=== PATIENT | male | born 2005 | race Caucasian/White ===

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

== ENCOUNTER 2024-03-04 08:21 | Emergency (ER) | payer BC ==
[~2024-03-04] VITALS: Ht 185.4 cm; Wt 77.3 kg
[2024-03-04 08:57] LABS: BASO # 0.04 K/mm3 (0.02-0.10); EOS # 0.18 K/mm3 (0.04-0.40); EOS % 2.7 % (0.0-4.0); HEMOGLOBIN 18.2 g/dL (12.5-16.1); LYMPH# 2.06 K/mm3 (1.50-4.00); MEAN CELL VOLUME 91 fl (78-95); MEAN CORPUSCULAR HEMOGLOBIN 32 pg (26-32); MEAN CORPUSCULAR HGB CONC 35 g/dL (33-37); MEAN PLATELET VOLUME 9.3 fl (7.4-10.4); MONO # 0.65 K/mm3 (0.20-0.80); NEU # 3.65 K/mm3 (1.40-6.50); PLATELET COUNT 248 K/mm3 (130-400); RED BLOOD COUNT 5.73 M/mm3 (4.20-5.60); RED CELL DISTRIBUTION WIDTH 11.4 % (11.5-14.5); WHITE BLOOD COUNT 6.6 K/mm3 (4.8-10.8)
[2024-03-04] MEDS ORDERED: NS 1,000 ML IV SCH (09:00)
[2024-03-04 09:09] LABS: SODIUM 137 mmol/L (136-145)
[2024-03-04 09:10] LABS: CALCIUM 10.2 mg/dL (8.3-10.5)
[2024-03-04 09:11] LABS: GLUCOSE 107 mg/dL (75-110)
[2024-03-04 09:12] LABS: TOTAL PROTEIN 7.9 g/dL (6.4-8.3)
[2024-03-04 09:13] LABS: CARBON DIOXIDE 22 mmol/L (22-29); TOTAL BILIRUBIN 0.9 mg/dL (0.2-1.2)
[2024-03-04 09:17] LABS: ALCOHOL IN-HOUSE < 10 mg/dL (<10); AST-SGOT 18 U/L (5-34)
[2024-03-04 09:18] LABS: ALT/SGPT 15 U/L (0-55)
[2024-03-04 10:15] VITALS: BP 138/87
== END 2024-03-04 10:20 | disposition home or self-care (01) ==
LOC: ED 08:21
PROVIDERS: Physician Assistant
DX: R00.2 Palpitations (principal); R00.0 Tachycardia, unspecified; F15.10 Other stimulant abuse, uncomplicated
CPT/HCPCS: J7030